=== PATIENT | male | born 1990 | race African-American/Black ===

== ENCOUNTER 2019-04-06 03:55 | Emergency (ER) | payer MEDICAID, OTHER ==
[~2019-04-06] VITALS: Ht 188 cm; Wt 77.1 kg
[2019-04-06 04:00] VITALS: BP 143/78
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
--- NOTE | 2019-04-06 04:39 | NUR ---
ED Nurse Note: Pt was taken for CT via wc, accompanied by a tech.
--- NOTE | 2019-04-06 04:57 | NUR ---
ED Nurse Note: Pt came back from CT, not in any distress.
[2019-04-06] MEDS ORDERED: IBUPROFEN600 MG ORAL (05:02)
[2019-04-06] MEDS ORDERED: ROBAXIN-750750 MG PO (05:02)
[2019-04-06] MEDS ORDERED: LIDODERM700 M1 TOPIC (05:02)
--- NOTE | 2019-04-06 05:50 | Diagnostic Imaging Report ---
EXAM: CT Head Without Intravenous Contrast CLINICAL HISTORY: INJ TECHNIQUE: Axial computed tomography images of the head/brain without intravenous contrast. CTDI is 53.4 mGy and DLP is 1179.1 mGy-cm. One or more of the following dose reduction techniques were used: automated exposure control, adjustment of the mA and/or kV according to patient size, use of iterative reconstruction technique. COMPARISON: No relevant prior studies available. FINDINGS: Brain: Unremarkable. No hemorrhage. No significant white matter disease. No edema. Ventricles: Unremarkable. No ventriculomegaly. Bones/joints: Unremarkable. No acute fracture. Soft tissues: Right frontal scalp contusion. Sinuses: Unremarkable as visualized. No acute sinusitis. Mastoid air cells: Unremarkable as visualized. No mastoid effusion. IMPRESSION: Right frontal scalp contusion. Otherwise unremarkable noncontrast head CT.
--- NOTE | 2019-04-06 05:51 | Diagnostic Imaging Report ---
EXAM: CT Cervical Spine Without Intravenous Contrast CLINICAL HISTORY: INJ TECHNIQUE: Axial computed tomography images of the cervical spine without intravenous contrast. CTDI is 8.2 mGy and DLP is 281.8 mGy-cm. One or more of the following dose reduction techniques were used: automated exposure control, adjustment of the mA and/or kV according to patient size, use of iterative reconstruction technique. COMPARISON: No relevant prior studies available. FINDINGS: Vertebrae: Reversal of normal cervical lordosis. No listhesis. No acute fracture. Discs/spinal canal/neural foramina: No acute findings. No spinal canal stenosis. Soft tissues: Unremarkable. IMPRESSION: No acute traumatic findings in the cervical spine with reversal of normal cervical lordosis, likely related to flexion head positioning.
[2019-04-06 06:11] VITALS: BP 143/78
--- NOTE | 2019-04-06 06:11 | NUR ---
ED Nurse Note: Pt cleared by ERMD for discharge. DC instructions/prescription was given and explained to pt and verbalized understanding of teachings. All medical deviecs such as ID band removed. Pt is AAO x4, ambulatory and left with all personal belongings.
== END 2019-04-06 06:11 | disposition home or self-care (01) ==
LOC: EDBD 03:55 → EMR 04:05
DX: S16.1XXA Strain of muscle, fascia and tendon at neck level, initial encounter (principal); S09.90XA Unspecified injury of head, initial encounter; V43.62XA Car passenger injured in collision with other type car in traffic accident, initial encounter; Y92.410 Unspecified street and highway as the place of occurrence of the external cause
CPT/HCPCS: 70450; 72125; Z7502; 99284